=== PATIENT | female | born 1985 ===

== ENCOUNTER 2024-01-15 13:58 | Emergency (ER) | payer OTHER ==
[2024-01-15] MEDS: Fluorescein 1 MG Ophth Strip EYERT ONE (14:52)
== END 2024-01-15 15:04 | disposition home or self-care (01) ==
LOC: DL.ED 13:58
DX: T15.91XA Foreign body on external eye, part unspecified, right eye, initial encounter (principal); W45.8XXA Other foreign body or object entering through skin, initial encounter
CPT/HCPCS: 65205; 99283-25